=== PATIENT | female | born 1980 | race Caucasian/White ===

== ENCOUNTER → 2021-04-26 09:31 | Outpatient (CLI) | payer BC, SELFPAY ==
--- NOTE | 2021-04-26 09:34 | DI.RAD.S_ITS ---
PROCEDURE: HL HYSTEROSAPINGOGRAPHY INDICATIONS: Female infertility COMPARISON: None. FINDINGS: Patient had a documented negative test prior to the study. Following speculum insertion, a balloon-tip catheter was inserted into the cervical canal, and secured by inflating the balloon. Contrast was then injected into the endometrial canal. Uterus: The uterine cavity appears normal in size and morphology, without synechiae or masses. Fallopian tubes: Both fallopian tubes fill with contrast, and appear normal in caliber and morphology. There is ready dispersion of contrast into the peritoneal cavity. IMPRESSION: Normal hysterosalpingogram with bilateral fallopian tube patency demonstrated. Dictated by: Aurora Reyna MD, PhD on 04/26/2021 at 15:58 Approved by: Aurora Reyna MD, PhD on 04/26/2021 at 16:02
--- NOTE | 2021-04-26 13:17 | PM.PROC.1 ---
Procedures Date/Time Date of procedure: 04/26/21 Time of procedure: 10:27 General Procedure description: Hysterosalpingogram Informed consent given: Yes Consent signed: Yes Procedure Notes: After informed consent was obtained, the patient was placed on an overturned bedpan on the fluoroscopy table. An open-sided bivalve speculum was placed into the vagina. The cervix was cleaned x3 with Betadine. A single-tooth tenaculum was placed on the anterior lip of the cervix. The hysterosalpingogram catheter passed easily into the endometrial cavity and 3 cc of air were injected into the balloon. The open sided speculum was removed from the vagina. 18 cc of Isovue 300 were injected into the intrauterine cavity. Under fluoroscopic examination the contours of the uterine cavity were normal. There was spill from both tubes. The bedpan was removed from under the patient's bottom. Sponge, lap, and instrument counts were correct x2. The patient tolerated the procedure well.
== END ==
PROVIDERS: Referring Provider Obstetrics & Gynecology; Visit Provider Obstetrics & Gynecology
DX: N97.9 Female infertility, unspecified (principal)
CPT/HCPCS: 58340; 74740

== ENCOUNTER → 2021-04-29 07:46 | Outpatient (CLI) | payer BC, SELFPAY ==
[2021-04-29 09:55] LABS: Semen 30 min. Liquification? No
[2021-04-29 09:56] LABS: Sperm Count 2 X10^6mL
== END ==
PROVIDERS: Referring Provider Obstetrics & Gynecology; Visit Provider Obstetrics & Gynecology
DX: N97.9 Female infertility, unspecified (principal)
CPT/HCPCS: 58323; 89261